=== PATIENT | male | born 1945 | race Caucasian/White ===

== ENCOUNTER 2022-02-04 12:42 | Emergency (ER) | payer MEDICARE, BC ==
[2022-02-04] MEDS ORDERED: Sodium Chloride 0.9% 10 ML Syringe FLUSH PRN (12:53)
[2022-02-04] MEDS ORDERED: Gadobenate Dimeglumine 529 MG/ML 20 ML SDV IVPUSH ONE (13:40)
[2022-02-04] MEDS ORDERED: Sodium Chloride 0.9% 10 ML Syringe FLUSH SCH (13:45)
[2022-02-04] MEDS ORDERED: Iopamidol 612 MG/ML 100 ML Bottle IVPUSH ONE (14:09)
[2022-02-04] MEDS ORDERED: Sodium Chloride 0.9% 10 ML Syringe FLUSH ONE (14:09)
[2022-02-04] MEDS ORDERED: Iopamidol 612 MG/ML 50 ML SDV IVPUSH ONE (14:09)
[2022-02-04] MEDS ORDERED: Sodium Chloride 0.9% 100 ML IV SCH (14:15)
[2022-02-04] MEDS ORDERED: levETIRAcetam 1,500 MG in Sodium Chloride 0.9% 100 ML IV ONE ×2 (15:04→15:45)
[2022-02-04] MEDS ORDERED: Dexamethasone 4 MG/ML SDV IVPUSH ONE (15:05)
== END 2022-02-04 16:40 ==
LOC: JD.ED 12:42
DX: I63.9 Cerebral infarction, unspecified (principal); C79.31 Secondary malignant neoplasm of brain; R56.9 Unspecified convulsions; R55 Syncope and collapse; I10 Essential (primary) hypertension; J98.4 Other disorders of lung; Z20.822 Contact with and (suspected) exposure to COVID-19; Z72.0 Tobacco use
CPT/HCPCS: 36415; 70450; 70553; 71260; 74177; 80053; 84484; 85025; 85610; 85730; 93005; 96365; 96375; 99285; A9577; J1100; J1953; Q9967; U0002